=== PATIENT | male | born 1955 | race Hispanic/Latino ===

== ENCOUNTER 2020-06-30 12:32 | Inpatient (IN) | payer MEDICARE, OTHER ==
[~2020-06-30] VITALS: Ht 167.6 cm; Wt 66.7 kg
[~2020-06-30 12:32] MED LIST: AMLO5TAB4 PO; CARV6.25 PO; LISI1TAB51 PO
[2020-06-30] MEDS ORDERED: 0.9%NACL 1000ML 1,000 ML IV ONE (14:15)
[2020-06-30 14:20] LABS: BASOPHILS % (AUTO) 0.4 % (0.0-5.0); EOSINOPHILS % (AUTO) 2.1 % (0.0-8.0); HEMATOCRIT 29.9 % (42-54); LYMPHOCYTES % (AUTO) 13.7 % (21.0-51.0); MEAN CORPUSCULAR HEMOGLOBIN 43.1 pg (27.0-33.0); MEAN CORPUSCULAR HGB CONC 36.8 g/dL (32.0-36.0); MEAN CORPUSCULAR VOLUME 117.3 fL (79-99); MONOCYTES % (AUTO) 9.6 % (3.0-13.0); NEUTROPHILS % (AUTO) 73.3 % (40.0-77.0); PLATELET COUNT (AUTO) 249 K/uL (130-400); RED BLOOD CELL COUNT(AUTO) 2.55 MIL/uL (4.50-6.20); RED CELL DISTRIBUTION WIDTH 16.3 % (11.0-15.5); WHITE BLOOD COUNT (AUTO) 14.1 K/uL (4.8-10.8)
[2020-06-30 14:37] LABS: INR 1.1 (0.85-1.15); PROTHROMBIN TIME 11.9 SEC (9.6-11.6)
[2020-06-30 14:38] LABS: PARTIAL THROMBOPLASTIN TIME 26.5 SEC (26.3-35.5)
[2020-06-30 14:44] LABS: B-TYPE NATRIURETIC PEPTIDE 141 pg/mL (0-100)
[2020-06-30 14:46] LABS: CREATININE 0.9 mg/dL (0.5-1.5)
[2020-06-30 14:51] LABS: ALBUMIN 3.5 g/dL (3.5-5.0); BILIRUBIN,TOTAL 1.2 mg/dL (0.2-1.0); TOTAL PROTEIN, SERUM 7.7 g/dL (6.0-8.3)
[2020-06-30] MEDS ORDERED: IOHEXOL-350 75 ML VIAL IV ONE (15:11)
[2020-06-30 15:30] LABS: APPEARANCE,URINE Clear (CLEAR); BILIRUBIN,URINE Small (NEGATIVE); COLOR,URINE Dark Yellow (YELLOW); GLUCOSE, URINE (UA) Negative (NEGATIVE); KETONES,URINE Trace mg/dL (NEGATIVE); LEUKOCYTE ESTERASE ,URINE Trace (NEGATIVE); NITRATE,URINE Negative (NEGATIVE); OCCULT BLOOD,URINE Negative (NEGATIVE); PH,URINE 7.5 (5.0-8.0); PROTEIN,URINE Trace mg/dL (NEGATIVE); UROBILINOGEN,URINE >=8.0 mg/dL (0.2-1.0)
[2020-06-30] MEDS ORDERED: POTASSIUM BICARB/CIT AC 25 MEQ TABLET.EFF ONE (15:39)
[2020-06-30 15:43] LABS: RBC,URINE 0-1 /HPF (0-1)
[2020-06-30 15:45] LABS: BACTERIA,URINE Rare /HPF (None Seen)
[2020-06-30 15:46] LABS: MUCUS,URINE Few LPF (None Seen); SQUAMOUS EPITHELIAL CELL,UR Few /HPF (0-2)
[2020-06-30] MEDS ORDERED: CEFTRIAXONE 1G VIAL ONE (16:46)
[2020-06-30] MEDS ORDERED: 0.9%NACL 100ML 100 ML IV ONE (16:47)
[2020-06-30] MEDS ORDERED: HYDRALAZINE 20MG/ML VIAL ONE (19:32)
[2020-06-30] MEDS: CEFTRIAXONE 1G VIAL IVP SCH (19:45)
[2020-06-30] MEDS ORDERED: LIDOCAINE HCL-MPF 1% 2ML VIAL IV PRN (19:45)
[2020-06-30] MEDS ORDERED: POTASSIUM CHLORIDE 20MEQ/100ML 100 ML IV PRN (19:45)
[2020-06-30] MEDS ORDERED: KETOROLAC 15MG/ML VIAL (15MG/ML) IV PRN (19:45)
[2020-06-30] MEDS: LACTATED RINGERS 1000ML 1,000 ML IV SCH (19:45)
[2020-06-30] MEDS: FAMOTIDINE 20MG VIAL IV SCH (21:00)
[2020-06-30 21:19] LABS: BASOPHILS % (AUTO) 0.4 % (0.0-5.0); EOSINOPHILS % (AUTO) 2.1 % (0.0-8.0); HEMATOCRIT 28.3 % (42-54); LYMPHOCYTES % (AUTO) 18.6 % (21.0-51.0); MEAN CORPUSCULAR HEMOGLOBIN 43.3 pg (27.0-33.0); MEAN CORPUSCULAR HGB CONC 36.4 g/dL (32.0-36.0); MEAN CORPUSCULAR VOLUME 118.9 fL (79-99); MONOCYTES % (AUTO) 9.3 % (3.0-13.0); NEUTROPHILS % (AUTO) 68.7 % (40.0-77.0); PLATELET COUNT (AUTO) 226 K/uL (130-400); RED BLOOD CELL COUNT(AUTO) 2.38 MIL/uL (4.50-6.20); RED CELL DISTRIBUTION WIDTH 16.4 % (11.0-15.5); WHITE BLOOD COUNT (AUTO) 14.6 K/uL (4.8-10.8)
[2020-06-30 21:27] LABS: CREATININE 0.8 mg/dL (0.5-1.5); POTASSIUM 3.7 mmol/L (3.5-5.1)
[2020-06-30 21:33] LABS: ALBUMIN 3.2 g/dL (3.5-5.0); BILIRUBIN,TOTAL 0.8 mg/dL (0.2-1.0); MAGNESIUM 2.5 mg/dL (1.80-2.40)
[2020-06-30] MEDS ORDERED: FAMOTIDINE 20MG VIAL IV ONE (23:08)
[2020-07-01 05:46] VITALS: BP 136/79
[2020-07-01] MEDS ORDERED: AMLO-258 PO (07:23)
[2020-07-01] MEDS ORDERED: PANT40TA54 PO (07:23)
[2020-07-01] MEDS ORDERED: HYDR25TA PO (07:23)
[2020-07-01] MEDS ORDERED: LISI40TA9 PO (07:23)
[2020-07-01] MEDS: LACTATED RINGERS 1000ML 1,000 ML IV SCH (07:38)
[2020-07-01 07:40] LABS: BASOPHILS % (AUTO) 0.5 % (0.0-5.0); EOSINOPHILS % (AUTO) 2.6 % (0.0-8.0); LYMPHOCYTES % (AUTO) 15.6 % (21.0-51.0); MEAN CORPUSCULAR HEMOGLOBIN 42.5 pg (27.0-33.0); MEAN CORPUSCULAR HGB CONC 35.4 g/dL (32.0-36.0); MEAN CORPUSCULAR VOLUME 120.2 fL (79-99); MONOCYTES % (AUTO) 9.3 % (3.0-13.0); NEUTROPHILS % (AUTO) 71.2 % (40.0-77.0); PLATELET COUNT (AUTO) 210 K/uL (130-400); RED BLOOD CELL COUNT(AUTO) 2.33 MIL/uL (4.50-6.20); RED CELL DISTRIBUTION WIDTH 16.8 % (11.0-15.5); WHITE BLOOD COUNT (AUTO) 13.3 K/uL (4.8-10.8)
[2020-07-01] MEDS: FAMOTIDINE 20MG VIAL IV SCH ×2 (07:45→21:46)
[2020-07-01 07:59] LABS: CREATININE 0.8 mg/dL (0.5-1.5); POTASSIUM 3.4 mmol/L (3.5-5.1)
[2020-07-01 08:00] VITALS: BP 163/87
[2020-07-01 12:00] VITALS: BP 163/91
[2020-07-01 15:48] VITALS: BP 179/97
[2020-07-01] MEDS: HYDRALAZINE 20MG/ML VIAL IV PRN (16:47)
[2020-07-01 19:39] VITALS: BP 152/85
[2020-07-01] MEDS: CEFTRIAXONE 1G VIAL IVP SCH (19:45)
[2020-07-02] VITALS (10 sets, daily range): BP systolic 132–188; BP diastolic 74–100
[2020-07-02] MEDS: HYDRALAZINE 20MG/ML VIAL IV PRN ×2 (00:12→08:54)
[2020-07-02 05:10] LABS: BASOPHILS % (AUTO) 0.4 % (0.0-5.0); EOSINOPHILS % (AUTO) 3.3 % (0.0-8.0); HEMATOCRIT 27.3 % (42-54); LYMPHOCYTES % (AUTO) 12.7 % (21.0-51.0); MEAN CORPUSCULAR HEMOGLOBIN 43.5 pg (27.0-33.0); MEAN CORPUSCULAR HGB CONC 36.6 g/dL (32.0-36.0); MEAN CORPUSCULAR VOLUME 118.7 fL (79-99); MONOCYTES % (AUTO) 9.6 % (3.0-13.0); NEUTROPHILS % (AUTO) 72.7 % (40.0-77.0); PLATELET COUNT (AUTO) 228 K/uL (130-400); RED CELL DISTRIBUTION WIDTH 16.3 % (11.0-15.5); WHITE BLOOD COUNT (AUTO) 14.7 K/uL (4.8-10.8)
[2020-07-02 05:31] LABS: CREATININE 0.8 mg/dL (0.5-1.5); POTASSIUM 3.4 mmol/L (3.5-5.1)
[2020-07-02] MEDS ORDERED: HYDROCHLOROTHIAZIDE 25 MG TABLET PO SCH (06:30)
[2020-07-02] MEDS ORDERED: POTASSIUM CHLORIDE 10MEQ/100ML 100 ML IV PRN (08:15)
[2020-07-02] MEDS ORDERED: LIDOCAINE HCL-MPF 1% 2ML VIAL IV PRN (08:15)
[2020-07-02] MEDS ORDERED: KCL 20 MEQ ERTAB PO ONE (08:41)
[2020-07-02] MEDS: FAMOTIDINE 20MG VIAL IV SCH ×2 (08:54→20:36)
[2020-07-02] MEDS: AMLODIPINE 5 MG TAB PO SCH (11:49)
[2020-07-02] MEDS: CEFTRIAXONE 1G VIAL IVP SCH (20:36)
[2020-07-03 03:27] VITALS: BP 135/72
[2020-07-03 07:10] LABS: BASOPHILS % (AUTO) 0.5 % (0.0-5.0); EOSINOPHILS % (AUTO) 3.6 % (0.0-8.0); HEMATOCRIT 28.6 % (42-54); LYMPHOCYTES % (AUTO) 10.7 % (21.0-51.0); MEAN CORPUSCULAR HEMOGLOBIN 43.3 pg (27.0-33.0); MEAN CORPUSCULAR VOLUME 120.2 fL (79-99); MONOCYTES % (AUTO) 8.7 % (3.0-13.0); NEUTROPHILS % (AUTO) 75.4 % (40.0-77.0); PLATELET COUNT (AUTO) 218 K/uL (130-400); RED BLOOD CELL COUNT(AUTO) 2.38 MIL/uL (4.50-6.20); RED CELL DISTRIBUTION WIDTH 16.3 % (11.0-15.5); WHITE BLOOD COUNT (AUTO) 16.8 K/uL (4.8-10.8)
[2020-07-03 07:16] LABS: CREATININE 0.9 mg/dL (0.5-1.5); POTASSIUM 3.8 mmol/L (3.5-5.1)
[2020-07-03 08:07] VITALS: BP 161/95
[2020-07-03] MEDS: FAMOTIDINE 20MG VIAL IV SCH ×2 (09:01→20:33)
[2020-07-03] MEDS: HYDROCHLOROTHIAZIDE 25 MG TABLET PO SCH (09:02)
[2020-07-03] MEDS: AMLODIPINE 5 MG TAB PO SCH (09:03)
[2020-07-03] MEDS ORDERED: DIATR MEGLU/DIATRIZOATE SODIUM 30 ML BOTTLE ONE (10:26)
[2020-07-03 11:54] VITALS: BP 190/90
[2020-07-03] MEDS ORDERED: IOHEXOL-350 75 ML VIAL IV ONE (14:34)
[2020-07-03 16:10] VITALS: BP_SYST 142; BP_SYST 161; BP_DIAS 72; BP_DIAS 91
[2020-07-03 18:51] VITALS: BP 124/75
[2020-07-03] MEDS: ZOSYN 3.375GM+NS 50ML 50 ML IV SCH (20:33)
[2020-07-03 23:04] VITALS: BP 149/82
[2020-07-04 03:43] VITALS: BP 150/87
[2020-07-04] MEDS: ZOSYN 3.375GM+NS 50ML 50 ML IV SCH ×3 (04:24→21:45)
[2020-07-04 05:16] LABS: BASOPHILS % (AUTO) 0.4 % (0.0-5.0); EOSINOPHILS % (AUTO) 3.7 % (0.0-8.0); HEMATOCRIT 29.4 % (42-54); LYMPHOCYTES % (AUTO) 12.1 % (21.0-51.0); MEAN CORPUSCULAR HEMOGLOBIN 43.2 pg (27.0-33.0); MEAN CORPUSCULAR HGB CONC 36.7 g/dL (32.0-36.0); MEAN CORPUSCULAR VOLUME 117.6 fL (79-99); MONOCYTES % (AUTO) 7.8 % (3.0-13.0); NEUTROPHILS % (AUTO) 74.6 % (40.0-77.0); PLATELET COUNT (AUTO) 250 K/uL (130-400); RED CELL DISTRIBUTION WIDTH 15.8 % (11.0-15.5); WHITE BLOOD COUNT (AUTO) 18.4 K/uL (4.8-10.8)
[2020-07-04 05:36] LABS: CREATININE 0.9 mg/dL (0.5-1.5); POTASSIUM 3.5 mmol/L (3.5-5.1)
[2020-07-04] MEDS: KCL 20 MEQ ERTAB PO PRN (05:56)
[2020-07-04 08:59] VITALS: BP 150/77
[2020-07-04] MEDS: AMLODIPINE 5 MG TAB PO SCH (09:00)
[2020-07-04] MEDS: HYDROCHLOROTHIAZIDE 25 MG TABLET PO SCH (09:00)
[2020-07-04] MEDS: FAMOTIDINE 20MG VIAL IV SCH ×2 (10:03→21:45)
[2020-07-04 12:50] VITALS: BP 153/81
[2020-07-04 16:30] VITALS: BP 139/85
[2020-07-04 20:21] VITALS: BP 159/95
[2020-07-04 23:44] VITALS: BP 160/91
[2020-07-05] VITALS (21 sets, daily range): BP systolic 105–158; BP diastolic 62–90
[2020-07-05] MEDS: ZOSYN 3.375GM+NS 50ML 50 ML IV SCH ×3 (06:04→21:15)
[2020-07-05 08:05] LABS: BASOPHILS % (AUTO) 0.3 % (0.0-5.0); EOSINOPHILS % (AUTO) 4.1 % (0.0-8.0); HEMATOCRIT 29.6 % (42-54); MEAN CORPUSCULAR HEMOGLOBIN 42.2 pg (27.0-33.0); MEAN CORPUSCULAR HGB CONC 35.5 g/dL (32.0-36.0); MEAN CORPUSCULAR VOLUME 118.9 fL (79-99); MONOCYTES % (AUTO) 8.2 % (3.0-13.0); NEUTROPHILS % (AUTO) 76.4 % (40.0-77.0); PLATELET COUNT (AUTO) 257 K/uL (130-400); RED BLOOD CELL COUNT(AUTO) 2.49 MIL/uL (4.50-6.20); RED CELL DISTRIBUTION WIDTH 15.7 % (11.0-15.5); WHITE BLOOD COUNT (AUTO) 20.6 K/uL (4.8-10.8)
[2020-07-05 08:49] LABS: CREATININE 0.9 mg/dL (0.5-1.5)
[2020-07-05] MEDS: AMLODIPINE 5 MG TAB PO SCH (10:39)
[2020-07-05] MEDS: HYDROCHLOROTHIAZIDE 25 MG TABLET PO SCH (10:39)
[2020-07-05] MEDS: FAMOTIDINE 20MG VIAL IV SCH ×2 (10:39→21:15)
[2020-07-05] MEDS: 0.9%NACL 1000ML 1,000 ML IV SCH ×3 (10:40→21:16)
[2020-07-05] MEDS ORDERED: METRONIDAZOLE 500MG/100ML BAG 100 ML IVPB SCH (14:00)
[2020-07-05] MEDS ORDERED: BUPIVACAINE/PF 0.5% 30ML VIAL ONE (15:06)
[2020-07-05] MEDS ORDERED: LIDOCAINE PF 100MG/5ML (2%) SYRINGE 5ML ONE (15:08)
[2020-07-05] MEDS ORDERED: ONDANSETRON 4MG INJ ONE ×2 (15:09→16:56)
[2020-07-05] MEDS ORDERED: PROPOFOL 10 MG/ML 20ML VIAL IV ONE (15:09)
[2020-07-05] MEDS ORDERED: ROCURONIUM 10MG/1ML SYR 10 MG/ML ML ONE (15:09)
[2020-07-05] MEDS ORDERED: FENTANYL CITRATE PF 50 MCG/1 ML 2ML VIAL ONE (15:09)
[2020-07-05] MEDS ORDERED: MIDAZOLAM HCL 1 MG/ML 2ML VIAL ONE (15:10)
[2020-07-05] MEDS ORDERED: PHENYLEPHRINE HCL 10 MG/ML 1ML VIAL IV ONE (15:25)
[2020-07-05] MEDS ORDERED: GLYCOPYRROLATE 1 MG/5 ML SYRINGE ONE (15:56)
[2020-07-05] MEDS ORDERED: NEOSTIGMINE 5MG/5ML SYR IV ONE (15:56)
[2020-07-05] MEDS ORDERED: MORPHINE 2 MG SYG ONE (16:28)
[2020-07-05] MEDS: ACETAMINOPHEN WITH CODEINE 1 TAB TAB PO PRN (21:34)
[2020-07-06 04:06] VITALS: BP 132/76
[2020-07-06] MEDS: ZOSYN 3.375GM+NS 50ML 50 ML IV SCH ×3 (04:33→21:00)
[2020-07-06] MEDS: ACETAMINOPHEN WITH CODEINE 1 TAB TAB PO PRN ×2 (04:33→09:41)
[2020-07-06 07:14] LABS: BASOPHILS % (AUTO) 0.3 % (0.0-5.0); EOSINOPHILS % (AUTO) 1.6 % (0.0-8.0); LYMPHOCYTES % (AUTO) 6.6 % (21.0-51.0); MEAN CORPUSCULAR HGB CONC 35.4 g/dL (32.0-36.0); MEAN CORPUSCULAR VOLUME 121.5 fL (79-99); MONOCYTES % (AUTO) 7.5 % (3.0-13.0); PLATELET COUNT (AUTO) 272 K/uL (130-400); RED BLOOD CELL COUNT(AUTO) 2.14 MIL/uL (4.50-6.20); RED CELL DISTRIBUTION WIDTH 15.7 % (11.0-15.5)
[2020-07-06] MEDS: HYDROCHLOROTHIAZIDE 25 MG TABLET PO SCH (07:22)
[2020-07-06] MEDS: AMLODIPINE 5 MG TAB PO SCH (07:22)
[2020-07-06] MEDS: FAMOTIDINE 20MG VIAL IV SCH ×2 (07:22→21:00)
[2020-07-06 07:32] LABS: POTASSIUM 4.1 mmol/L (3.5-5.1)
[2020-07-06 08:28] VITALS: BP 142/79
[2020-07-06 12:49] VITALS: BP 138/80
[2020-07-06] MEDS: KETOROLAC 30MG VIAL (30MG/ML) IV PRN ×2 (14:26→21:01)
[2020-07-06 17:22] VITALS: BP 121/76
[2020-07-06 19:51] VITALS: BP 114/73
[2020-07-07] VITALS (7 sets, daily range): BP systolic 113–150; BP diastolic 68–83
[2020-07-07 04:20] LABS: BASOPHILS % (AUTO) 0.2 % (0.0-5.0); EOSINOPHILS % (AUTO) 3.3 % (0.0-8.0); HEMATOCRIT 24.9 % (42-54); MEAN CORPUSCULAR HEMOGLOBIN 41.7 pg (27.0-33.0); MEAN CORPUSCULAR HGB CONC 34.1 g/dL (32.0-36.0); MEAN CORPUSCULAR VOLUME 122.1 fL (79-99); MONOCYTES % (AUTO) 8.7 % (3.0-13.0); NEUTROPHILS % (AUTO) 78.7 % (40.0-77.0); PLATELET COUNT (AUTO) 243 K/uL (130-400); RED BLOOD CELL COUNT(AUTO) 2.04 MIL/uL (4.50-6.20); RED CELL DISTRIBUTION WIDTH 15.2 % (11.0-15.5); WHITE BLOOD COUNT (AUTO) 22.1 K/uL (4.8-10.8)
[2020-07-07] MEDS: ZOSYN 3.375GM+NS 50ML 50 ML IV SCH ×3 (04:23→21:35)
[2020-07-07 04:31] LABS: ALBUMIN 2.7 g/dL (3.5-5.0); BILIRUBIN,TOTAL 0.8 mg/dL (0.2-1.0); CREATININE 1.1 mg/dL (0.5-1.5); POTASSIUM 3.8 mmol/L (3.5-5.1); TOTAL PROTEIN, SERUM 6.1 g/dL (6.0-8.3)
[2020-07-07] MEDS: AMLODIPINE 5 MG TAB PO SCH (09:11)
[2020-07-07] MEDS: FAMOTIDINE 20MG TAB PO SCH ×2 (09:11→21:35)
[2020-07-07] MEDS: HYDROCHLOROTHIAZIDE 25 MG TABLET PO SCH (09:11)
[2020-07-07] MEDS ORDERED: EPOETIN ALFA-EPBX (NON-ESRD) 10,000 UNIT/ML VIAL SQ SCH (09:45)
[2020-07-07] MEDS ORDERED: COMPOUND IV MISC 1 EACH IVSOLN MISC PRN (10:00)
[2020-07-07 10:22] LABS: % IRON SATURATION 17.8 % (30-44)
[2020-07-07] MEDS: IRON SUCROSE COMPLEX 300 MG in 0.9% NACL 250ML 250 ML IV SCH (10:27)
[2020-07-07] MEDS: POTASSIUM CHLORIDE 10% ELIXIR 20 MEQ/15 ML UDCUP PO PRN (17:06)
[2020-07-08 03:51] VITALS: BP 148/87
[2020-07-08 04:56] LABS: CREATININE 0.9 mg/dL (0.5-1.5); POTASSIUM 3.4 mmol/L (3.5-5.1)
[2020-07-08] MEDS: ZOSYN 3.375GM+NS 50ML 50 ML IV SCH ×3 (05:12→20:25)
[2020-07-08 07:16] LABS: HEMATOCRIT 24.2 % (42-54); MEAN CORPUSCULAR HEMOGLOBIN 43.5 pg (27.0-33.0); PLATELET COUNT (AUTO) 266 K/uL (130-400); RED CELL DISTRIBUTION WIDTH 15.2 % (11.0-15.5)
[2020-07-08 08:00] VITALS: BP 152/78
[2020-07-08] MEDS: FAMOTIDINE 20MG TAB PO SCH ×2 (08:29→20:25)
[2020-07-08] MEDS: HYDROCHLOROTHIAZIDE 25 MG TABLET PO SCH (08:29)
[2020-07-08] MEDS: IRON SUCROSE COMPLEX 300 MG in 0.9% NACL 250ML 250 ML IV SCH (08:30)
[2020-07-08] MEDS: AMLODIPINE 5 MG TAB PO SCH (08:30)
[2020-07-08 12:00] VITALS: BP 133/79
[2020-07-08] MEDS: ACETAMINOPHEN WITH CODEINE 1 TAB TAB PO PRN (13:23)
[2020-07-08 15:37] LABS: MEAN CORPUSCULAR HEMOGLOBIN 42.9 pg (27.0-33.0); PLATELET COUNT (AUTO) 271 K/uL (130-400); RED CELL DISTRIBUTION WIDTH 15.1 % (11.0-15.5); WHITE BLOOD COUNT (AUTO) 25.9 K/uL (4.8-10.8)
[2020-07-08 16:00] VITALS: BP 132/80
[2020-07-08] MEDS: FOLIC ACID 1 MG TABLET PO SCH (16:15)
[2020-07-08] MEDS: THIAMINE HCL 100 MG/ML 2ML VIAL IVP SCH (16:15)
[2020-07-08 16:56] LABS: BAND NEUTROPHILS % (MANUAL) 1 % (0-2); EOSINOPHILS % (MANUAL) 1 % (1-6); LYMPHOCYTES % (MANUAL) 5 % (22-44); MAN.DIFF COMMENT-IMPRESSION MANUAL DIFFERENTIAL; MONOCYTES % (MANUAL) 5 % (2-9); SEGMENTED NEUTROPHILS % 88 % (40-70)
[2020-07-08 19:39] VITALS: BP 127/91
[2020-07-09] VITALS: BP 141/82
[2020-07-09 03:56] VITALS: BP 146/76
[2020-07-09] MEDS: ZOSYN 3.375GM+NS 50ML 50 ML IV SCH ×3 (05:25→19:55)
[2020-07-09 08:51] VITALS: BP 130/53
[2020-07-09] MEDS: FAMOTIDINE 20MG TAB PO SCH ×2 (09:45→19:55)
[2020-07-09] MEDS: HYDROCHLOROTHIAZIDE 25 MG TABLET PO SCH (09:46)
[2020-07-09] MEDS: AMLODIPINE 5 MG TAB PO SCH (09:46)
[2020-07-09] MEDS: FOLIC ACID 1 MG TABLET PO SCH (09:46)
[2020-07-09] MEDS: THIAMINE HCL 100 MG/ML 2ML VIAL IVP SCH (09:47)
[2020-07-09] MEDS: IRON SUCROSE COMPLEX 300 MG in 0.9% NACL 250ML 250 ML IV SCH (09:47)
[2020-07-09 12:12] VITALS: BP 108/68
[2020-07-09] MEDS: ACETAMINOPHEN WITH CODEINE 1 TAB TAB PO PRN (15:37)
[2020-07-09 16:51] VITALS: BP 138/76
[2020-07-09] MEDS ORDERED: BISACODYL 10 MG SUPP.RECT RC SCH (19:15)
[2020-07-09 20:18] VITALS: BP 130/75
[2020-07-10] VITALS (8 sets, daily range): BP systolic 126–155; BP diastolic 76–87
[2020-07-10 04:36] LABS: BASOPHILS % (AUTO) 0.5 % (0.0-5.0); HEMATOCRIT 26.7 % (42-54); LYMPHOCYTES % (AUTO) 8.3 % (21.0-51.0); MEAN CORPUSCULAR HEMOGLOBIN 40.5 pg (27.0-33.0); MEAN CORPUSCULAR HGB CONC 34.5 g/dL (32.0-36.0); MEAN CORPUSCULAR VOLUME 117.6 fL (79-99); NEUTROPHILS % (AUTO) 75.5 % (40.0-77.0); PLATELET COUNT (AUTO) 381 K/uL (130-400); RED BLOOD CELL COUNT(AUTO) 2.27 MIL/uL (4.50-6.20); RED CELL DISTRIBUTION WIDTH 14.7 % (11.0-15.5); WHITE BLOOD COUNT (AUTO) 24.7 K/uL (4.8-10.8)
[2020-07-10 04:48] LABS: CREATININE 0.9 mg/dL (0.5-1.5); POTASSIUM 3.2 mmol/L (3.5-5.1)
[2020-07-10] MEDS: ZOSYN 3.375GM+NS 50ML 50 ML IV SCH ×3 (05:17→20:32)
[2020-07-10] MEDS ORDERED: DIATR MEGLU/DIATRIZOATE SODIUM 30 ML BOTTLE ONE (08:27)
[2020-07-10] MEDS: IRON SUCROSE COMPLEX 300 MG in 0.9% NACL 250ML 250 ML IV SCH (09:00)
[2020-07-10] MEDS: FAMOTIDINE 20MG TAB PO SCH ×2 (09:00→20:33)
[2020-07-10] MEDS ORDERED: KCL 20 MEQ ERTAB PO SCH (09:15)
[2020-07-10] MEDS ORDERED: IOHEXOL-350 75 ML VIAL IV ONE (14:01)
[2020-07-10] MEDS ORDERED: MECLIZINE HCL 12.5 MG TABLET PO SCH (15:45)
[2020-07-10] MEDS: THIAMINE HCL 100 MG/ML 2ML VIAL IVP SCH (16:16)
[2020-07-10] MEDS: AMLODIPINE 5 MG TAB PO SCH (16:17)
[2020-07-10] MEDS: HYDROCHLOROTHIAZIDE 25 MG TABLET PO SCH (16:18)
[2020-07-10] MEDS: FOLIC ACID 1 MG TABLET PO SCH (16:18)
[2020-07-11] VITALS (7 sets, daily range): BP systolic 90–137; BP diastolic 39–85
[2020-07-11] MEDS: ACETAMINOPHEN WITH CODEINE 1 TAB TAB PO PRN ×2 (01:43→23:50)
[2020-07-11] MEDS: ZOSYN 3.375GM+NS 50ML 50 ML IV SCH ×3 (04:40→21:06)
[2020-07-11 04:56] LABS: BASOPHILS % (AUTO) 0.5 % (0.0-5.0); EOSINOPHILS % (AUTO) 3.8 % (0.0-8.0); HEMATOCRIT 28.8 % (42-54); LYMPHOCYTES % (AUTO) 7.7 % (21.0-51.0); MEAN CORPUSCULAR HEMOGLOBIN 41.8 pg (27.0-33.0); MEAN CORPUSCULAR HGB CONC 35.4 g/dL (32.0-36.0); MONOCYTES % (AUTO) 9.6 % (3.0-13.0); NEUTROPHILS % (AUTO) 76.1 % (40.0-77.0); PLATELET COUNT (AUTO) 462 K/uL (130-400); RED BLOOD CELL COUNT(AUTO) 2.44 MIL/uL (4.50-6.20); RED CELL DISTRIBUTION WIDTH 15.1 % (11.0-15.5); WHITE BLOOD COUNT (AUTO) 29.8 K/uL (4.8-10.8)
[2020-07-11 05:11] LABS: CREATININE 0.9 mg/dL (0.5-1.5); POTASSIUM 4.3 mmol/L (3.5-5.1)
[2020-07-11] MEDS: FAMOTIDINE 20MG TAB PO SCH ×2 (09:11→21:06)
[2020-07-11] MEDS: FOLIC ACID 1 MG TABLET PO SCH (09:12)
[2020-07-11] MEDS: HYDROCHLOROTHIAZIDE 25 MG TABLET PO SCH (09:12)
[2020-07-11] MEDS: AMLODIPINE 5 MG TAB PO SCH (09:13)
[2020-07-11] MEDS: THIAMINE HCL 100 MG/ML 2ML VIAL IVP SCH (12:28)
[2020-07-11] MEDS ORDERED: METRONIDAZOLE 500 MG TABLET PO SCH ×2 (14:30→15:15)
[2020-07-11] MEDS ORDERED: METRONIDAZOLE 500 MG TABLET ONE (15:07)
[2020-07-11] MEDS: METRONIDAZOLE 500 MG TABLET PO SCH (21:06)
[2020-07-12 02:39] VITALS: BP_SYST 127; BP_SYST 139; BP_DIAS 75; BP_DIAS 80
[2020-07-12 04:50] LABS: BASOPHILS % (AUTO) 0.6 % (0.0-5.0); EOSINOPHILS % (AUTO) 4.4 % (0.0-8.0); HEMATOCRIT 25.6 % (42-54); LYMPHOCYTES % (AUTO) 8.6 % (21.0-51.0); MEAN CORPUSCULAR HEMOGLOBIN 43.1 pg (27.0-33.0); MEAN CORPUSCULAR HGB CONC 36.7 g/dL (32.0-36.0); MEAN CORPUSCULAR VOLUME 117.4 fL (79-99); MONOCYTES % (AUTO) 9.7 % (3.0-13.0); NEUTROPHILS % (AUTO) 74.7 % (40.0-77.0); PLATELET COUNT (AUTO) 349 K/uL (130-400); RED BLOOD CELL COUNT(AUTO) 2.18 MIL/uL (4.50-6.20); RED CELL DISTRIBUTION WIDTH 14.8 % (11.0-15.5); WHITE BLOOD COUNT (AUTO) 24.7 K/uL (4.8-10.8)
[2020-07-12 05:00] LABS: CREATININE 0.9 mg/dL (0.5-1.5); POTASSIUM 3.6 mmol/L (3.5-5.1)
[2020-07-12] MEDS: ZOSYN 3.375GM+NS 50ML 50 ML IV SCH ×3 (05:37→20:21)
[2020-07-12] MEDS: METRONIDAZOLE 500 MG TABLET PO SCH ×3 (05:37→20:21)
[2020-07-12 08:34] VITALS: BP 130/69
[2020-07-12] MEDS: AMLODIPINE 5 MG TAB PO SCH (08:34)
[2020-07-12] MEDS: FOLIC ACID 1 MG TABLET PO SCH (08:34)
[2020-07-12] MEDS: POTASSIUM CHLORIDE 10% ELIXIR 20 MEQ/15 ML UDCUP PO PRN ×2 (08:35→11:48)
[2020-07-12] MEDS: FAMOTIDINE 20MG TAB PO SCH ×2 (08:35→20:22)
[2020-07-12] MEDS: HYDROCHLOROTHIAZIDE 25 MG TABLET PO SCH (08:35)
[2020-07-12] MEDS: THIAMINE HCL 100 MG/ML 2ML VIAL IVP SCH (08:36)
[2020-07-12 11:59] VITALS: BP 132/84
[2020-07-12 16:00] VITALS: BP 132/74
[2020-07-12 19:00] VITALS: BP 126/70
[2020-07-12 23:00] VITALS: BP 116/68
[2020-07-13 03:00] VITALS: BP 128/70
[2020-07-13 04:25] LABS: HEMATOCRIT 28.1 % (42-54); MEAN CORPUSCULAR HEMOGLOBIN 41.9 pg (27.0-33.0); MEAN CORPUSCULAR HGB CONC 35.9 g/dL (32.0-36.0); MEAN CORPUSCULAR VOLUME 116.6 fL (79-99); RED BLOOD CELL COUNT(AUTO) 2.41 MIL/uL (4.50-6.20); RED CELL DISTRIBUTION WIDTH 14.8 % (11.0-15.5); WHITE BLOOD COUNT (AUTO) 28.1 K/uL (4.8-10.8)
[2020-07-13] MEDS: ZOSYN 3.375GM+NS 50ML 50 ML IV SCH ×3 (05:01→20:58)
[2020-07-13] MEDS: METRONIDAZOLE 500 MG TABLET PO SCH ×3 (05:01→20:58)
[2020-07-13 08:21] VITALS: BP 129/72
[2020-07-13] MEDS: FOLIC ACID 1 MG TABLET PO SCH (08:45)
[2020-07-13] MEDS: THIAMINE HCL 100 MG/ML 2ML VIAL IVP SCH (08:45)
[2020-07-13] MEDS: FAMOTIDINE 20MG TAB PO SCH ×2 (08:45→20:58)
[2020-07-13] MEDS: HYDROCHLOROTHIAZIDE 25 MG TABLET PO SCH (08:45)
[2020-07-13] MEDS: AMLODIPINE 5 MG TAB PO SCH (08:45)
[2020-07-13 12:06] VITALS: BP 134/69
[2020-07-13] MEDS: ACETAMINOPHEN WITH CODEINE 1 TAB TAB PO PRN (13:14)
[2020-07-13 16:13] VITALS: BP 130/77
[2020-07-13 20:00] VITALS: BP 123/85
[2020-07-13 23:39] VITALS: BP 123/58
[2020-07-14 04:01] VITALS: BP 138/78
[2020-07-14 04:23] LABS: BASOPHILS % (AUTO) 0.6 % (0.0-5.0); EOSINOPHILS % (AUTO) 4.2 % (0.0-8.0); HEMATOCRIT 26.8 % (42-54); LYMPHOCYTES % (AUTO) 9.1 % (21.0-51.0); MEAN CORPUSCULAR HEMOGLOBIN 41.7 pg (27.0-33.0); MEAN CORPUSCULAR HGB CONC 35.4 g/dL (32.0-36.0); MEAN CORPUSCULAR VOLUME 117.5 fL (79-99); MONOCYTES % (AUTO) 8.5 % (3.0-13.0); NEUTROPHILS % (AUTO) 75.8 % (40.0-77.0); PLATELET COUNT (AUTO) 313 K/uL (130-400); RED BLOOD CELL COUNT(AUTO) 2.28 MIL/uL (4.50-6.20); RED CELL DISTRIBUTION WIDTH 14.6 % (11.0-15.5)
[2020-07-14 04:30] LABS: CREATININE 0.9 mg/dL (0.5-1.5); POTASSIUM 3.5 mmol/L (3.5-5.1)
[2020-07-14] MEDS: ZOSYN 3.375GM+NS 50ML 50 ML IV SCH (05:09)
[2020-07-14] MEDS: METRONIDAZOLE 500 MG TABLET PO SCH (05:11)
[2020-07-14] MEDS: AMLODIPINE 5 MG TAB PO SCH (07:49)
[2020-07-14] MEDS: FAMOTIDINE 20MG TAB PO SCH (07:50)
[2020-07-14] MEDS: HYDROCHLOROTHIAZIDE 25 MG TABLET PO SCH (07:50)
[2020-07-14] MEDS: FOLIC ACID 1 MG TABLET PO SCH (07:51)
[2020-07-14] MEDS: KCL 20 MEQ ERTAB PO PRN (07:51)
[2020-07-14] MEDS: THIAMINE HCL 100 MG/ML 2ML VIAL IVP SCH (07:51)
[2020-07-14 08:42] VITALS: BP 130/74
[2020-07-14 12:09] VITALS: BP 126/79
== END 2020-07-14 14:08 | DRG 417 ==
LOC: EDH 12:32 → EDHIP 19:35 → 4CH 07-01 06:00
PROVIDERS: ADMIT Family Medicine; ATTEND Family Medicine
PROC: 0FT44ZZ Resection of Gallbladder, Percutaneous Endoscopic Approach (ICD-10-PCS; principal; 2020-07-05 14:45)
DX: K80.00 Calculus of gallbladder with acute cholecystitis without obstruction (principal); A41.9 Sepsis, unspecified organism; J96.91 Respiratory failure, unspecified with hypoxia; E87.1 Hypo-osmolality and hyponatremia; E87.6 Hypokalemia; K57.90 Diverticulosis of intestine, part unspecified, without perforation or abscess without bleeding; D50.9 Iron deficiency anemia, unspecified; I10 Essential (primary) hypertension; K52.9 Noninfective gastroenteritis and colitis, unspecified; M41.9 Scoliosis, unspecified; R62.7 Adult failure to thrive; Z86.73 Personal history of transient ischemic attack (TIA), and cerebral infarction without residual deficits
CPT/HCPCS: 36415; 70450; 71045; 74177; 74178; 76700; 76705; 78226; 80048; 80053; 81001; 82550; 82948; 83540; 83550; 83605; 83690; 83735; 83880; 84145; 84484; 85025; 85027; 85610; 85730; 87040; 88304; 93005; 97039; A9537; G0378; J0360; J0696; J1756; J1885; J2001; J2250; J2370; J2405; J2543; J2704; J2710; J3010; J3411; J3490; J7030; J7050; Q9963; Q9967

== ENCOUNTER 2023-07-07 11:04 | Emergency (ER) | payer OTHER, MEDICARE ==
[~2023-07-07] VITALS: Ht 167.6 cm; Wt 81.6 kg
[~2023-07-07 11:04] MED LIST changes: +AMLO-258 PO; -AMLO5TAB4 PO; -CARV6.25 PO; +HYDR25TA PO; -LISI1TAB51 PO; +LISI40TA9 PO; +PANT40TA54 PO
[2023-07-07 12:00] LABS: BASOPHILS # (AUTO) 0.01 K/uL (0.00-0.20); BASOPHILS % (AUTO) 0.1 % (0.0-5.0); HEMATOCRIT 35.8 % (42-54); IMMATURE GRANULOCYTE ABSOLUTE 0.03 K/uL (0-1); LYMPHOCYTES # (AUTO) 0.9 K/uL (1.0-4.8); LYMPHOCYTES % (AUTO) 12.9 % (21.0-51.0); MEAN CORPUSCULAR HEMOGLOBIN 31.5 pg (27.0-33.0); MEAN CORPUSCULAR HGB CONC 36.6 g/dL (32.0-36.0); MEAN CORPUSCULAR VOLUME 86.1 fL (79-99); MONOCYTES % (AUTO) 14.4 % (3.0-13.0); NEUTROPHILS # (AUTO) 5.2 K/uL (1.8-7.7); NEUTROPHILS % (AUTO) 72.2 % (40.0-77.0); PLATELET COUNT (AUTO) 204 K/uL (130-400); RED BLOOD CELL COUNT(AUTO) 4.16 MIL/uL (4.50-6.20); WHITE BLOOD COUNT (AUTO) 7.1 K/uL (4.8-10.8)
[2023-07-07 12:17] LABS: ALANINE AMINOTRANSFERASE 18 U/L (12-78); ALBUMIN 4.2 g/dL (3.5-5.0); ALCOHOL, BLOOD < 3 mg/dL (0-10); ASPARTATE AMINOTRANSFERASE 32 U/L (10-37); BILIRUBIN,TOTAL 0.7 mg/dL (0.2-1.0); CARBON DIOXIDE 31 mmol/L (21-32); GLOMERULAR FILTR. RATE CALC 82 mL/min (>90); GLUCOSE,RANDOM 102 mg/dL (70-105); POTASSIUM 3.8 mmol/L (3.5-5.1); SODIUM SERUM 121 mmol/L (136-145); TOTAL PROTEIN, SERUM 7.9 g/dL (6.0-8.3); UREA NITROGEN, BLOOD 12 mg/dL (7-18)
[2023-07-07 12:27] LABS: ACETAMINOPHEN < 2 mcg/mL (10-29); CHLORIDE 84 mmol/L (101-111); SALICYLATE < 2.8 mg/dL (2.8-20.0)
[2023-07-07 14:02] LABS: AMPHET/METH SCREEN,URINE NEGATIVE (NEGATIVE); BARBITURATE SCREEN, URINE NEGATIVE (NEGATIVE); BENZODIAZEPINES SCREEN,URINE NEGATIVE (NEGATIVE); CANNABINOID SCREEN,URINE NEGATIVE (NEGATIVE); COCAINE SCREEN,URINE NEGATIVE (NEGATIVE); OPIATE SCREEN,URINE NEGATIVE (NEGATIVE); PHENCYCLIDINE SCREEN,URINE NEGATIVE (NEGATIVE)
[2023-07-07 14:33] LABS: ADD UA MICROSCOPIC YES; APPEARANCE,URINE CLEAR (CLEAR); BILIRUBIN,URINE NEGATIVE (NEGATIVE); COLOR,URINE YELLOW (YELLOW); GLUCOSE, URINE (UA) NEGATIVE (NEGATIVE); KETONES,URINE 100 mg/dL (NEGATIVE); LEUKOCYTE ESTERASE ,URINE NEGATIVE Leu/uL (NEGATIVE); NITRATE,URINE NEGATIVE (NEGATIVE); OCCULT BLOOD,URINE SMALL (NEGATIVE); PROTEIN,URINE 100 mg/dL (NEGATIVE)
[2023-07-07 14:35] LABS: CALCIUM OXALATE CRYSTALS,UR RARE /LPF (None Seen); MUCUS,URINE RARE LPF (None Seen); SQUAMOUS EPITHELIAL CELL,UR RARE /HPF (0-2); UNCLASSIFIED CRYSTAL 4 /HPF (None Seen); WBC,URINE 0-1 /HPF (0-1)
[2023-07-07] MEDS: ONDANSETRON ODT 4MG TAB SL ONE (16:10)
[2023-07-07 16:16] VITALS: BP 164/90; PULSE 78; RESP 17; O2SAT 97
== END 2023-07-07 16:37 | disposition home or self-care (01) ==
LOC: EDH 11:04
DX: G47.00 Insomnia, unspecified (principal); Z79.899 Other long term (current) drug therapy
CPT/HCPCS: 99285; 80053; 80305; 85025; 36415; 93005; 81001; G0481

== ENCOUNTER 2023-10-01 11:18 | Emergency (ER) | payer OTHER, MEDICARE ==
[~2023-10-01] VITALS: Ht 162.6 cm; Wt 59.0 kg
[2023-10-01 11:36] LABS: BASOPHILS # (AUTO) 0.02 K/uL (0.00-0.20); BASOPHILS % (AUTO) 0.2 % (0.0-5.0); HEMATOCRIT 41.4 % (42-54); IMMATURE GRANULOCYTE ABSOLUTE 0.04 K/uL (0-1); LYMPHOCYTES # (AUTO) 1.6 K/uL (1.0-4.8); LYMPHOCYTES % (AUTO) 15.5 % (21.0-51.0); MEAN CORPUSCULAR HEMOGLOBIN 33.1 pg (27.0-33.0); MEAN CORPUSCULAR HGB CONC 34.3 g/dL (32.0-36.0); MEAN CORPUSCULAR VOLUME 96.5 fL (79-99); MONOCYTES # (AUTO) 0.9 K/uL (0.1-1.0); MONOCYTES % (AUTO) 8.6 % (3.0-13.0); NEUTROPHILS # (AUTO) 7.8 K/uL (1.8-7.7); NEUTROPHILS % (AUTO) 75.3 % (40.0-77.0); PLATELET COUNT (AUTO) 202 K/uL (130-400); RED BLOOD CELL COUNT(AUTO) 4.29 MIL/uL (4.50-6.20); RED CELL DISTRIBUTION WIDTH 12.8 % (11.0-15.5); WHITE BLOOD COUNT (AUTO) 10.4 K/uL (4.8-10.8)
[2023-10-01 11:46] LABS: CARBON DIOXIDE 26 mmol/L (21-32); CHLORIDE 102 mmol/L (101-111); CREATININE 1.6 mg/dL (0.5-1.3); GLOMERULAR FILTR. RATE CALC 47 mL/min (>90); GLUCOSE,RANDOM 135 mg/dL (70-105); POTASSIUM 3.8 mmol/L (3.5-5.1); SODIUM SERUM 143 mmol/L (136-145); UREA NITROGEN, BLOOD 30 mg/dL (7-18)
[2023-10-01 11:50] LABS: ACETAMINOPHEN < 1 mcg/mL (10-29); ALANINE AMINOTRANSFERASE 19 U/L (12-78); ALCOHOL, BLOOD < 3 mg/dL (0-10); ASPARTATE AMINOTRANSFERASE 18 U/L (10-37); BILIRUBIN,TOTAL 1.2 mg/dL (0.2-1.0); SALICYLATE < 2.8 mg/dL (2.8-20.0); TOTAL PROTEIN, SERUM 8.1 g/dL (6.0-8.3)
[2023-10-01 12:55] VITALS: BP 113/80; PULSE 120; RESP 20; O2SAT 98
[2023-10-01] MEDS: 0.9%NACL 1000ML 1,000 ML IV ONE (13:25)
== END 2023-10-01 13:26 | disposition left against medical advice (07) ==
LOC: EDH 11:18
DX: R53.1 Weakness (principal); E78.00 Pure hypercholesterolemia, unspecified; I10 Essential (primary) hypertension; F41.9 Anxiety disorder, unspecified; R41.82 Altered mental status, unspecified; Z86.73 Personal history of transient ischemic attack (TIA), and cerebral infarction without residual deficits
CPT/HCPCS: 99284; 70450; 80053; 85025; 36415; 93005; G0481